=== PATIENT | female | born 1980 | race Caucasian/White ===

== ENCOUNTER → 2019-01-15 | Outpatient (CLI) | payer MEDICAID, OTHER ==
--- NOTE | 2019-01-15 13:52 | KCIC ---
MR of the left knee HISTORY: Left knee pain, chronic, worse the last couple of years. Swelling. TECHNIQUE: Routine multiplanar sequences are obtained. FINDINGS: No evidence of medial meniscal tear. No evidence of lateral meniscal tear. Anterior and posterior cruciate ligaments are intact. Medial collateral ligament intact. Iliotibial band appears within normal limits. Fibular collateral ligament, biceps femoris tendon and popliteus tendon are intact. Extensor mechanism is intact. No evidence of acute retinacular tear. Small joint effusion. [id number] chondromalacia of the patella. At least moderate chondromalacia of the medial femoral condyle. At least mild lateral compartment chondromalacia. No acute fracture. No aggressive bone destruction. No significant Villarreal's cyst. IMPRESSION: 1. No evidence of meniscal tear or internal derangement. 2. Degenerative chondromalacia. Electronically signed by: Lawson Novoa MD (01/15/2019 1:49 PM) [facility]
== END | disposition home or self-care (01) ==
LOC: KCIC MRI 09:48
PROVIDERS: ATTEND Physician Assistant Medical
DX: M22.42 Chondromalacia patellae, left knee (principal); G89.29 Other chronic pain
CPT/HCPCS: 73721